=== PATIENT | female | born 1955 | race Caucasian/White ===

== ENCOUNTER → 2018-05-08 10:57 | Outpatient (CLI) | payer MEDICAID, SELFPAY ==
--- NOTE | 2018-05-08 11:01 | RAD_ITS ---
STUDY: X-RAY - PELVIS AND RIGHT HIP REASON FOR EXAM: Female, 62 years old. Chronic pain TECHNIQUE: Radiological exam, hip, unilateral, with pelvis when performed; 2 or 3 views. COMPARISON: None. FINDINGS: No acute fracture or dislocation identified. Degenerative changes of the visualized lumbar spine. Degenerative changes of the bilateral hips. There is an osteophyte formation along the superior lateral aspect of the right femoral head. RAD/HIP, UNI W/ Pelvis 2-3 Views IMPRESSION: No acute fracture or dislocation. Degenerative changes. There is an osteophyte formation along the right femoral head superior laterally. This could be causing some impingement. MRI could be performed to further evaluate. Electronically Signed: Ceferino Woods, at 6:08 EDT Tel , Service support ,
== END ==
PROVIDERS: Family Provider Nurse Practitioner Primary Care; PCP Nurse Practitioner Primary Care; Referring Provider Physician Assistant; Visit Provider Physician Assistant
DX: M16.11 Unilateral primary osteoarthritis, right hip (principal); M25.751 Osteophyte, right hip
CPT/HCPCS: 73502

== ENCOUNTER → 2021-04-14 14:57 | Outpatient (CLI) | payer MEDICAID, SELFPAY ==
--- NOTE | 2021-04-14 15:00 | CT_ITS ---
STUDY: CT CHEST WITH CONTRAST REASON FOR EXAM: Female, 65 years old. F/U LEFT LINGULA NODULE -- PLEASE COMPARE TO [place] 09/02/2020 RADIATION DOSAGE (If Supplied By Facility): CTDIvol = ( 7.58 ) mGy, DLP = ( 237.90 ) mGycm TECHNIQUE: Transaxial imaging was performed following intravenous administration of IV 100mL Isovue-[id number]. Individualized dose optimization techniques were used for this CT. COMPARISON: 09/02/2020 FINDINGS: Mild bilateral apical scarring. There is a marked interval decrease in the size of the nodule in the posterior aspect of the lingula with a decrease in size from 20 mm to 6 mm with some surrounding linear scarring, likely consistent with treated bronchogenic carcinoma or infection. No new noncalcified nodule or mass.. There is no demonstrated pleural abnormality. Normal heart and pericardium. Normal mediastinum. Normal hilar regions. Normal enhanced pulmonary arteries. Normal aorta arch and descending thoracic aorta. Normal osseous structures. There is no demonstrated abnormality of the visualized upper abdomen. CT/Chest WITH Contrast IMPRESSION: Markedly improved lingular nodule consistent with treated bronchogenic carcinoma or infection. Electronically Signed: Man Perez MD at 8:49 EDT Tel , Service support ,
== END ==
PROVIDERS: PCP Nurse Practitioner Primary Care; Referring Provider Internal Medicine Hematology & Oncology; Visit Provider Internal Medicine Hematology & Oncology
DX: R91.1 Solitary pulmonary nodule (principal)
CPT/HCPCS: 71260; Q9967; A4216